=== PATIENT | female | born 1970 | race Caucasian/White ===

== ENCOUNTER 2016-12-02 18:12 | Emergency (ER) | payer MEDICARE, OTHER ==
[2016-12-02 19:46] LABS: SPECIFIC GRAVITY 1.015 (1.001-1.030); URINE BILIRUBIN 1+ (NEGATIVE); URINE BLOOD 1+ (NEGATIVE); URINE GLUCOSE (UA) NEGATIVE (NEGATIVE); URINE LEUKOCYTE ESTERASE 2+ (NEGATIVE); URINE NITRITE NEGATIVE (NEGATIVE); URINE PROTEIN 1+ (NEGATIVE); URINE UROBILINOGEN NORMAL (0-1 mg/dl)
[2016-12-02 19:49] LABS: URINE APPEARANCE CLOUDY; URINE COLOR DARK YELLOW
[2016-12-02 19:55] LABS: ABSOLUTE NEUTROPHIL COUNT 6.6 K/mm3 (1.8-7.7); BASO % 0.2 % (0.2-1.0); EOS # 0.2 (0.0-0.5); EOS % 2.3 % (0.9-2.9); HEMATOCRIT 35.3 % (37.0-47.0); HEMOGLOBIN 11.5 gm/l (12.0-16.0); IMM NEUT% 0.4 % (0-1); LYMPH % 11.6 % (15-45); MEAN CELL VOLUME 89.1 fl (81.0-99.0); MEAN CORPUSCULAR HGB CONC 32.6 g/dl (33.0-37.0); MEAN PLATELET VOLUME 10.3 fl (7.4-10.4); MONO # 0.7 (0.0-0.8); MONO % 8.4 % (4-12); NEUT % 77.1 % (43-75); PLATELET COUNT 198 K/mm3 (130-400); RED CELL DISTRIBUTION WIDTH 13.2 % (11.5-14.5)
[2016-12-02 20:04] LABS: URINE AMORPHOUS SEDIMENT MODERATE; URINE BACTERIA 2+; URINE WBC 25-50 /hpf
--- NOTE | 2016-12-02 20:09 | RAD ---
12/02/2016 8:02 PM CHEST - 2 VIEWS History: Fever. Comparison: None Findings: Two views of the chest are obtained. The lungs are clear with out effusion or pneumothorax. The cardiomediastinal silhouette is unremarkable.. The osseous structures are intact.. IMPRESSION: No acute intrathoracic process.
[2016-12-02 20:20] LABS: ALBUMIN 3.6 gm/dL (3.5-5.7); CALCIUM 9.3 mg/dL (8.6-10.3)
[2016-12-02 20:21] LABS: ALB/GLOB RATIO 0.9 (>1.0)
[2016-12-02] MEDS ORDERED: CEFTRIAXONE 1 GRAM DUPLEX 50 ML IV ONE (20:22)
[2016-12-02] MEDS ORDERED: POTASSIUM CHLORIDE 10 MEQ TAB.SR PO ONE (20:34)
== END 2016-12-02 21:17 | disposition home or self-care (01) ==
LOC: ED 18:12
DX: N39.0 Urinary tract infection, site not specified (principal); I10 Essential (primary) hypertension; F03.90 Unspecified dementia, unspecified severity, without behavioral disturbance, psychotic disturbance, mood disturbance, and anxiety; Z87.442 Personal history of urinary calculi
CPT/HCPCS: 85025; 87086; 80053; 81001; 71020; 87804; 99283 ×2; 96374; A9270; J0696